=== PATIENT | female | born 1985 ===

== ENCOUNTER 2016-11-10 02:51 | Observation (INO) | payer MEDICAID, SELFPAY ==
[2016-11-10 03:21] VITALS: BMI 30.2
[2016-11-10] MEDS ORDERED: Sodium Chloride 0.9% 1,000 ML IV STA ×3 (03:24→06:30)
[2016-11-10 03:44] LABS: BASO # 0.1 K/uL (0.0-0.2); BASO % 0.8 % (0.0-2.0); EOS # 0.6 K/uL (0.0-0.7); EOS % 6.9 % (0.0-4.0); HEMATOCRIT 37.3 % (34.0-47.0); LYMPH # 1.9 K/uL (1.0-4.3); LYMPH % 20.5 % (20.0-40.0); MEAN CELL VOLUME 82.4 fl (81.0-99.0); MEAN CORPUSCULAR HEMOGLOBIN 27.1 pg (27.0-31.0); MEAN CORPUSCULAR HGB CONC 32.9 g/dL (33.0-37.0); MEAN PLATELET VOLUME 8.1 fl (7.2-11.7); MONO # 1.1 K/uL (0.0-0.8); MONO % 12.5 % (0.0-10.0); NEUT # 5.4 K/uL (1.8-7.0); NEUT % 59.3 % (50.0-75.0); RED CELL DISTRIBUTION WIDTH 16.9 % (11.5-14.5); WHITE BLOOD COUNT 9.1 K/uL (4.8-10.8)
[2016-11-10 03:52] LABS: RBC URINE 2429 /hpf (0-3); URINE BACTERIA RARE (<OCC); URINE BILIRUBIN NEGATIVE (NEGATIVE); URINE BLOOD LARGE (NEGATIVE); URINE COLOR YELLOW (YELLOW); URINE GLUCOSE (UA) NEG (Normal); URINE KETONE NEGATIVE (NEGATIVE); URINE LEUKOCYTE ESTERASE NEG Leu/uL (Negative); URINE PROTEIN 100 mg/dL (NEGATIVE); URINE UROBILINOGEN 0.2-1.0 mg/dL (0.2-1.0); WBC URINE 12 /hpf (0-5)
--- NOTE | 2016-11-10 04:05 | CT ---
EXAM: CT Abdomen and Pelvis Without Intravenous Contrast CLINICAL HISTORY: 31 years old, female; Pain; Abdominal pain; Flank; Left; Additional info: L flank pain, dark urine TECHNIQUE: Axial computed tomography images of the abdomen and pelvis without intravenous contrast. This CT exam was performed using one or more of the following dose reduction techniques: automated exposure control, adjustment of the mA and/or kV according to patient size, and/or use of iterative reconstruction technique. Coronal and sagittal reformatted images were created and reviewed. COMPARISON: No relevant prior studies available. FINDINGS: Lower thorax: No acute findings. ABDOMEN: Liver: Unremarkable. Gallbladder and bile ducts: No calcified stones. No ductal dilation. Pancreas: Unremarkable. No ductal dilation. Spleen: No splenomegaly. Adrenals: No mass. Kidneys and ureters: Few small calculi within LEFT kidney. Mild pelvocaliectasis of LEFT kidney. 0.6 x 0.5 x 0.6 cm calculus within LEFT proximal ureter. Stomach and bowel: No definite mural thickening. No obstruction. Appendix: Normal caliber. No inflammation. PELVIS: Bladder: Apparent mild bladder wall thickening. Incomplete distention, limiting evaluation. No stones. Reproductive: Unremarkable as visualized. ABDOMEN and PELVIS: Intraperitoneal space: No significant fluid collection. No free air. Bones/joints: No acute fracture. Soft tissues: Unremarkable. Vasculature: Unremarkable. No aneurysm. Lymph nodes: No pathologically enlarged lymph nodes. IMPRESSION: 1. LEFT proximal ureteral calculus with mild hydronephrosis. 2. Mild cystitis vs underdistention. Correlate with urinalysis. 3. Incidental/non-acute findings are described above.
--- NOTE | 2016-11-10 04:07 | ED PDOC ---
"HPI: Abdomen Time Seen by Provider: 11/10/16 03:08 Chief Complaint (Nursing): Abdominal Pain Chief Complaint (Provider): abdominal pain, vomiting History Per: Patient, Family, Clinical Science Liaison (Ny gamble RN) Onset/Duration Of Symptoms: Days (3), Intermittent Episodes Current Symptoms Are (Timing): Still Present Location Of Pain/Discomfort: LLQ, Other (L flank) Quality Of Discomfort: Sharp Associated Symptoms: Nausea, Vomiting, Loss Of Appetite, Back Pain. denies: Diarrhea, Urinary Symptoms Exacerbating Factors: None Alleviating Factors: None Last Bowel Movement: Today Additional Complaint(s): 31yo female presents c/o left abdominal pain radiating to left flank for 3 days. Denies fever, diarrhea, she states developed vomiting today. +Active vomiting in ED. Denies vaginal discharge. Currently finishing menses, currently about 6months and +breast feeding. Abnormal Vaginal Bleeding: No Last Menstral Period: now Past Medical History Reviewed: Historical Data, Nursing Documentation, Vital Signs Vital Signs: Last Vital Signs Temp 99.0 F 11/10/16 03:21 Pulse 76 11/10/16 05:33 Resp 16 11/10/16 05:33 BP 107/75 11/10/16 05:33 Pulse Ox 99 11/10/16 06:22 - Medical History PMH: No Chronic Diseases - Surgical History Surgical History: - Family History Family History: States: Unknown Family Hx - Living Arrangements Living Arrangements: With Family - Social History Current smoker - smoking cessation education provided: No - Immunization History Hx Tetanus Toxoid Vaccination: No Hx Influenza Vaccination: No Hx Pneumococcal Vaccination: No - Home Medications Home Medications: Ambulatory Orders Medication Instructions Recorded Multivit/Folic Acid/I 1 tab PO DAILY 05/11/16 [] Ferrous Sulfate [Feosol] 325 mg PO TID #100 tab 05/14/16 Ibuprofen [Motrin Tab] 600 mg PO Q6 PRN #30 tab 05/14/16 Sennosides A and B [Senokot Tab] 17.2 mg PO HS PRN #30 tab 05/14/16 oxyCODONE/Acetaminophen [Percocet 1 tab PO Q4 PRN #30 tab 05/14/16 5/325 mg Tab] - Allergies Allergies/Adverse Reactions: Allergies Allergy/AdvReac Type Severity Reaction Status Date / Time PORK Allergy RASH Verified 11/10/16 03:21 Review of Systems ROS Statement: Except As Marked, All Systems Reviewed And Found Negative Constitutional: Negative for: Fever, Chills Cardiovascular: Negative for: Chest Pain, Palpitations Respiratory: Negative for: Cough, Shortness of Breath Gastrointestinal: Positive for: Nausea, Vomiting, Abdominal Pain Genitourinary Female: Positive for: Vaginal Bleeding. Negative for: Vaginal Discharge Musculoskeletal: Positive for: Back Pain. Negative for: Shoulder Pain, Arm Pain Skin: Negative for: Rash, Lesions, Jaundice Neurological: Negative for: Weakness, Numbness, Headache Psych: Negative for: Depression Physical Exam - Reviewed Nursing Documentation Reviewed: Yes Vital Signs Reviewed: Yes - Physical Exam Appears: Positive for: Non-toxic (vomiting), Uncomfortable Head Exam: Positive for: ATRAUMATIC, NORMAL INSPECTION, NORMOCEPHALIC Skin: Positive for: Normal Color, Warm, DRY Eye Exam: Positive for: EOMI, Normal appearance, PERRL ENT: Positive for: Normal ENT Inspection Neck: Positive for: Normal, Painless ROM Cardiovascular/Chest: Positive for: Regular Rate, Rhythm Respiratory: Positive for: CNT, Normal Breath Sounds Gastrointestinal/Abdominal: Positive for: Bowel Sounds, Soft, Tenderness (L sided). Negative for: Distended, Guarding Back: Positive for: L CVA Tenderness Extremity: Positive for: Normal ROM Neurologic/Psych: Positive for: Alert, Oriented. Negative for: Motor/Sensory Deficits - Laboratory Results Result Diagrams: 11/10/16 03:41 11/10/16 03:41 - ECG O2 Sat by Pulse Oximetry: 99 Medical Decision Making Medical Decision Making: workup initiated for L abdominl/flank pain r/o nephro-ureterolithiasis, pelvic pathology, diverticulitis, or other diagnosis not listed. Fluids, antiemetic and analgesic initiated. CT abd pelv and labwork/UA ordered. labs reviewed WBC normal Chem reveals signs dehydration with elevated BUN and hypokalemia Further pain medicine and IVF ordered CT: ABDOMEN: Liver: Unremarkable. Gallbladder and bile ducts: No calcified stones. No ductal dilation. Pancreas: Unremarkable. No ductal dilation. Spleen: No splenomegaly. Adrenals: No mass. Kidneys and ureters: Few small calculi within LEFT kidney. Mild pelvocaliectasis of LEFT kidney. 0.6 x 0.5 x 0.6 cm calculus within LEFT proximal ureter. Stomach and bowel: No definite mural thickening. No obstruction. Appendix: Normal caliber. No inflammation. PELVIS: Bladder: Apparent mild bladder wall thickening. Incomplete distention, limiting evaluation. No stones. Reproductive: Unremarkable as visualized. ABDOMEN and PELVIS: Intraperitoneal space: No significant fluid collection. No free air. Bones/joints: No acute fracture. Soft tissues: Unremarkable. NIA KELLY | Final Radiology Report CONFIDENTIALITY STATEMENT This report is intended only for use by the referring physician, and only in accordance with law. If you received this in error, call [phone]. Page 2 of 2 Vasculature: Unremarkable. No aneurysm. Lymph nodes: No pathologically enlarged lymph nodes. IMPRESSION: 1. LEFT proximal ureteral calculus with mild hydronephrosis. 2. Mild cystitis vs underdistention. Correlate with urinalysis. 3. Incidental/non-acute findings are described above. Thank you for allowing us to participate in the care of your patient. Dictated and Authenticated by: Monty Cunningham MD 11/10/2016 4:04 AM Eastern Time ([place] & Ej) 545am- pt required further analgesia as remains in painful distress. Flomax also ordered. 620am- multiple doses pain medicine, 2L IVF, flomax and remains in painful distress, pallor. Admit Obs to Dr Floyd, hospitalist for glue maker bone urology eval. Disposition - Clinical Impression Clinical Impression: Ureterolithiasis, Dehydration, Vomiting - Patient ED Disposition Is Patient to be Admitted: Yes Discussed With : Josh Floyd Comment: 615am Doctor Will See Patient In The: ED Counseled Patient/Family Regarding: Studies Performed, Diagnosis, Need For Followup - Disposition Disposition Time: 06:00 Condition: FAIR - Pt Status Changed To: Hospital Disposition Of: Observation - POA Present On Arrival: None"
[2016-11-10 04:12] LABS: ALB/GLOB RATIO 1.3 (1.0-2.1); ALKALINE PHOSPHATASE 88 U/L (38-126); ALT/SGPT 37 U/L (9-52); AST/SGOT 25 U/L (14-36); BILIRUBIN,TOTAL 0.2 mg/dl (0.2-1.3); BLOOD UREA NITROGEN 19 mg/dl (7-17); CALCIUM 9.3 mg/dL (8.4-10.2); CARBON DIOXIDE 24 mmol/L (22-30); CHLORIDE 107 mmol/L (98-107); GFR AFRICAN-AMERICAN > 60; GLUCOSE,RANDOM 116 mg/dL (65-105); LIPASE 62 U/L (23-300); POTASSIUM 3.5 MMOL/L (3.6-5.0); SODIUM 144 mmol/l (132-148); TOTAL PROTEIN 7.7 G/DL (6.3-8.2)
[2016-11-10] MEDS ORDERED: Potassium Chloride 20 mEq ER Tab PO ONE (04:17)
--- NOTE | 2016-11-10 06:43 | CP.PCM.HP ---
History of Present Illness - History of Present Illness History of Present Illness: PCP: None Chief Complaint: LLQ abdomihnjal pain HPI: 31 years old female with hx of Nephrolithiasis with possible Lithotripsy as per her description, Placenta Previa, 3 months Post and breast feeding, comes with 3 days of Sharp, crampy, Left flank pain radiating to the left lower Quadrant of the abdomen and to the left groin vomited here in the ED. No fever, diarrhea, dysuria nor urinary frequency. her menstruation is now ending. PMH: Placenta Previa; Nepohrolithiasis PSH: C- Section; Lithotripsy SH: Never Smoking; No alcohol; No illegal drug use; Live with family FH: No known family hx Allergy: NKDA Pork Medication: Denies Present on Admission - Present on Admission Any Indicators Present on Admission: No History of DVT/PE: No History of Uncontrolled Diabetes: No Urinary Catheter: No Decubitus Ulcer Present: No Review of Systems - Constitutional Constitutional: absent: Anorexia, Fatigue, Fever, Headache, Lethargy - EENT Eyes: absent: Diplopia, Floaters, Photophobia, Requires Corrective Lenses Ears: absent: Decreased Hearing, Ear Discharge, Ear Pain, Tinnitus Nose/Mouth/Throat: Nasal Congestion. absent: Epistaxis, Nasal Discharge, Sinus Pain, Sinus Pressure - Cardiovascular Cardiovascular: absent: Chest Pain, Dyspnea, Edema - Respiratory Respiratory: Cough. absent: Wheezing, Stridor - Gastrointestinal Gastrointestinal: Abdominal Pain, Constipation, Vomiting. absent: Melena, Nausea Additional comments: LLQ abdominal pain radiating to the left flank and left groin - Genitourinary Genitourinary: absent: Dysuria, Flank Pain, Hematuria, Urinary Frequency - Musculoskeletal Musculoskeletal: absent: Arthralgias, Muscle Weakness, Neck Pain - Integumentary Integumentary: absent: Pruritus, Rash, Skin Ulcer, Sores, Striae, Swelling - Neurological Neurological: absent: Confusion, Focal Weakness, Headaches, Paresthesias - Psychiatric Psychiatric: absent: Anxiety, Depression, Panic Attacks - Endocrine Endocrine: absent: Palpitations, Polydipsia - Hematologic/Lymphatic Hematologic: absent: Easy Bleeding, Easy Bruising Past Patient History - Past Social History Smoking Status: Never Smoked Chewing Tobacco Use: No Cigar Use: No Alcohol: None Drugs: Denies Home Situation {Lives}: With Family - CARDIAC Hx Cardiac Disorders: No - PULMONARY Hx Respiratory Disorders: No - NEUROLOGICAL Hx Neurological Disorder: No - HEENT Hx HEENT Problems: No - RENAL Hx Chronic Kidney Disease: Yes Hx Kidney Stones: Yes - ENDOCRINE/METABOLIC Hx Endocrine Disorders: No - HEMATOLOGICAL/ONCOLOGICAL Hx Blood Disorders: No - MUSCULOSKELETAL/RHEUMATOLOGICAL Hx Musculoskeletal Disorders: No - GASTROINTESTINAL Hx Gastrointestinal Disorders: No - GENITOURINARY/GYNECOLOGICAL Hx Genitourinary Disorders: No - PSYCHIATRIC Hx Psychophysiologic Disorder: No Hx Substance Use: No - SURGICAL HISTORY Hx Surgeries: Yes Hx Section: Yes Other/Comment: Lithotripsy - ANESTHESIA Hx Anesthesia: Yes Hx Anesthesia Reactions: No Meds Allergies/Adverse Reactions: Allergies Allergy/AdvReac Type Severity Reaction Status Date / Time PORK Allergy RASH Verified 11/10/16 03:21 Physical Exam - Constitutional Appears: No Acute Distress - Head Exam Head Exam: ATRAUMATIC, NORMAL INSPECTION, NORMOCEPHALIC - Eye Exam Eye Exam: EOMI, Normal appearance Pupil Exam: NORMAL ACCOMODATION, PERRL - ENT Exam ENT Exam: Mucous Membranes Moist, Normal Exam, Normal External Ear Exam, Normal Oropharynx - Neck Exam Neck exam: Positive for: Full Rom, Normal Inspection. Negative for: Lymphadenopathy, Tenderness - Respiratory Exam Respiratory Exam: Clear to Auscultation Bilateral. absent: Rales, Rhonchi, Wheezes - Cardiovascular Exam Cardiovascular Exam: REGULAR RHYTHM, RRR, +S1, +S2. absent: Gallop, JVD - GI/Abdominal Exam Additional comments: Flat, Soft, Tender at the LLQ, no guarding nor rebound tenderness. - Rectal Exam Rectal Exam: Deferred - Extremities Exam Extremities exam: Positive for: full ROM, normal inspection. Negative for: pedal edema, tenderness - Back Exam Back exam: NORMAL INSPECTION. absent: CVA tenderness (L), CVA tenderness (R) - Neurological Exam Neurological exam: Alert, CN II-XII Intact, Oriented x3, Reflexes Normal - Psychiatric Exam Psychiatric exam: Normal Affect, Normal Mood - Skin Skin Exam: Dry, Intact, Normal Color, Warm Results - Vital Signs Recent Vital Signs: Last Vital Signs Temp 99.0 F 11/10/16 03:21 Pulse 76 11/10/16 05:33 Resp 16 11/10/16 05:33 BP 107/75 11/10/16 05:33 Pulse Ox 99 11/10/16 06:25 - Labs Result Diagrams: 11/10/16 03:41 11/10/16 03:41 Labs: Laboratory Results - last 24 hr 11/10/16 11/10/16 11/10/16 03:41 03:41 03:41 WBC 9.1 RBC 4.52 Hgb 12.3 Hct 37.3 MCV 82.4 D MCH 27.1 MCHC 32.9 L RDW 16.9 H Plt Count 268 MPV 8.1 Neut % (Auto) 59.3 Lymph % (Auto) 20.5 [place] % (Auto) 12.5 H Eos % (Auto) 6.9 H Baso % (Auto) 0.8 Neut # 5.4 Lymph # 1.9 [place] # 1.1 H Eos # 0.6 Baso # 0.1 Sodium 144 Potassium 3.5 L Chloride 107 Carbon Dioxide 24 Anion Gap 17 BUN 19 H Creatinine 0.6 L Est GFR ( Amer) > 60 Est GFR (Non-Af Amer) > 60 Random Glucose 116 H Calcium 9.3 Total Bilirubin 0.2 AST 25 ALT 37 Alkaline Phosphatase 88 Total Protein 7.7 Albumin 4.4 Globulin 3.3 Albumin/Globulin Ratio 1.3 Lipase 62 Urine Color Yellow Urine Clarity Cloudy Urine pH 5.0 Ur Specific [place] 1.035 H Urine Protein 100 Urine Glucose (UA) Neg Urine Ketones Negative Urine Blood Large Urine Nitrate Negative Urine Bilirubin Negative Urine Urobilinogen 0.2-1.0 Ur Leukocyte Esterase Neg Urine RBC (Auto) 2429 H Urine Microscopic WBC 12 H Ur Squamous Epith Cells 5 Urine Bacteria Rare - Imaging and Cardiology CT scan - abdomen Status: Report reviewed by me Additional comment: ABDOMEN: Liver: Unremarkable. Gallbladder and bile ducts: No calcified stones. No ductal dilation. Pancreas: Unremarkable. No ductal dilation. Spleen: No splenomegaly. Adrenals: No mass. Kidneys and ureters: Few small calculi within LEFT kidney. Mild pelvocaliectasis of LEFT kidney. 0.6 x 0.5 x 0.6 cm calculus within LEFT proximal ureter. Stomach and bowel: No definite mural thickening. No obstruction. Appendix: Normal caliber. No inflammation. PELVIS: Bladder: Apparent mild bladder wall thickening. Incomplete distention, limiting evaluation. No stones. Reproductive: Unremarkable as visualized. ABDOMEN and PELVIS: Intraperitoneal space: No significant fluid collection. No free air. Bones/joints: No acute fracture. Soft tissues: Unremarkable. Vasculature: Unremarkable. No aneurysm. Lymph nodes: No pathologically enlarged lymph nodes. IMPRESSION: 1. LEFT proximal ureteral calculus with mild hydronephrosis. 2. Mild cystitis vs underdistention. Correlate with urinalysis. 3. Incidental/non-acute findings are described above. Assessment & Plan - Assessment and Plan (Free Text) Assessment: #. Left nephrolithiasis with Hydronephrosis #. Abdominal Pain #. Dehydration #. Hypokalemia Plan: 31 years old female with hx of Nephrolithiasis with possible Lithotripsy as per her description, Placenta Previa, 3 months Post and breast feeding, comes with 3 days of Sharp, crampy, Left flank pain radiating to the left lower Quadrant of the abdomen and to the left groin vomited here in the ED. #. Left nephrolithiasis with Hydronephrosis - Consult Dr Flores Urology - IV fluids NS at 200mls/hr - Strain all urine for stone if passed #. Abdominal Pain due to renal colic - pain management with Morphine - Zofran for vomiting #. No symptoms for Cystitis , Pelvic pain, dysuria, urine frequency, fever, WBC elevation nor positive Urinalysis - Will hold Antibiotics at present #. Dehydration - IV Fluids - Follow renal labs #. Hypokalemia - Repleted - Follow Electrolytes #. DVT prophylaxis with SCD #.Code Status: Full - Date & Time Date: 11/10/16 Time: 06:42
--- NOTE | 2016-11-10 09:06 | CP.PCM.CON ---
History of Present Illness - History of Present Illness History of Present Illness: called to see this 31 yr female for acute left renal colic. a ct was done showing a left UPJ occlusive stone and several smaller calculi within the left renal area proper. I will schedule cysto with JJ stent placement for Monday 12 pm. Past Patient History - Past Social History Smoking Status: Never Smoked Chewing Tobacco Use: No Cigar Use: No Alcohol: None Drugs: Denies Home Situation {Lives}: With Family - CARDIAC Hx Cardiac Disorders: No - PULMONARY Hx Respiratory Disorders: No - NEUROLOGICAL Hx Neurological Disorder: No - HEENT Hx HEENT Problems: No - RENAL Hx Chronic Kidney Disease: Yes Hx Kidney Stones: Yes - ENDOCRINE/METABOLIC Hx Endocrine Disorders: No - HEMATOLOGICAL/ONCOLOGICAL Hx Blood Disorders: No - MUSCULOSKELETAL/RHEUMATOLOGICAL Hx Musculoskeletal Disorders: No - GASTROINTESTINAL Hx Gastrointestinal Disorders: No - GENITOURINARY/GYNECOLOGICAL Hx Genitourinary Disorders: No - PSYCHIATRIC Hx Psychophysiologic Disorder: No Hx Substance Use: No - SURGICAL HISTORY Hx Surgeries: Yes Hx Section: Yes Other/Comment: Lithotripsy - ANESTHESIA Hx Anesthesia: Yes Hx Anesthesia Reactions: No Meds Allergies/Adverse Reactions: Allergies Allergy/AdvReac Type Severity Reaction Status Date / Time PORK Allergy RASH Verified 11/10/16 03:21 - Medications Medications: Current Medications Sodium Chloride (Sodium Chloride 0.9%) 1,000 mls @ 200 mls/hr IV .Q5H [facility] Stop: 11/11/16 07:28 Potassium Chloride (Potassium Chloride 10 Meq/100 Ml) 100 mls @ 100 mls/hr IVPB Q1 [facility] Stop: 11/10/16 09:59 Morphine Sulfate (Morphine) 2 mg IVP Q4 PRN PRN Reason: Pain, severe (8-10) Morphine Sulfate (Morphine) 1 mg IVP Q4 PRN PRN Reason: Pain, moderate (4-7) Ondansetron HCl (Zofran Inj) 4 mg IVP Q4 PRN PRN Reason: Nausea/Vomiting Tamsulosin HCl (Flomax) 0.4 mg PO DAILY [facility] Results - Vital Signs Recent Vital Signs: Last Vital Signs Temp 99.0 F 11/10/16 03:21 Pulse 86 11/10/16 06:51 Resp 16 11/10/16 06:51 BP 117/72 11/10/16 06:51 Pulse Ox 100 11/10/16 06:51 - Labs Result Diagrams: 11/10/16 03:41 11/10/16 03:41
[2016-11-10] MEDS ORDERED: HYDROmorphone 0.5 mg/0.5 ml ISec IVP PRN (13:46)
[2016-11-10] MEDS: Potassium CL 10mEq/100ml 100 ML IVPB SCH ×2 (14:33→16:18)
[2016-11-10] MEDS: Sodium Chloride 0.9% 1,000 ML IV SCH ×2 (16:17→22:48)
--- NOTE | 2016-11-10 23:37 | CARD ---
APPROVED REPORT EKG Measurement Heart [id number] <Conclusion> Normal sinus rhythm Normal ECG
[2016-11-11] MEDS: Sodium Chloride 0.9% 1,000 ML IV SCH ×2 (03:33→08:42)
[2016-11-11 06:39] LABS: BASO % 0.6 % (0.0-2.0); EOS # 0.2 K/uL (0.0-0.7); EOS % 2.2 % (0.0-4.0); HEMATOCRIT 33.5 % (34.0-47.0); LYMPH # 2.1 K/uL (1.0-4.3); MEAN CELL VOLUME 84.1 fl (81.0-99.0); MEAN CORPUSCULAR HEMOGLOBIN 27.1 pg (27.0-31.0); MEAN CORPUSCULAR HGB CONC 32.2 g/dL (33.0-37.0); MEAN PLATELET VOLUME 8.4 fl (7.2-11.7); MONO # 1.2 K/uL (0.0-0.8); MONO % 17.1 % (0.0-10.0); NEUT # 3.4 K/uL (1.8-7.0); NEUT % 49.1 % (50.0-75.0); NRBC % 0.1 % (0.0-0.0); RED CELL DISTRIBUTION WIDTH 17.1 % (11.5-14.5); WHITE BLOOD COUNT 6.9 K/uL (4.8-10.8)
[2016-11-11 06:51] LABS: BLOOD UREA NITROGEN 7 mg/dl (7-17); CALCIUM 7.9 mg/dL (8.4-10.2); CARBON DIOXIDE 23 mmol/L (22-30); CHLORIDE 112 mmol/L (98-107); GFR AFRICAN-AMERICAN > 60; GLUCOSE,RANDOM 94 mg/dL (65-105); POTASSIUM 3.5 MMOL/L (3.6-5.0); SODIUM 142 mmol/l (132-148)
[2016-11-11 07:01] LABS: PARTIAL THROMBOPLASTIN TIME 27.5 Seconds (25.6-37.1)
[2016-11-11] MEDS ORDERED: Potassium Chloride 10 MEQ in Dextrose 5%/0.9% NS 1,000 ML IV SCH (08:45)
[2016-11-11] MEDS ORDERED: Sodium Chloride 0.9% 1,000 ML IV ONE (12:15)
[2016-11-11] MEDS ORDERED: cefTRIAXone (Rocephin) 1 gm Inj IVPB ONE (12:22)
[2016-11-11] MEDS ORDERED: HYDROmorphone 0.5 mg/0.5 ml ISec IVP PRN (12:42)
[2016-11-11 14:11] VITALS: RESP 20
--- NOTE | 2016-11-11 14:31 | OP ---
PROCEDURE DATE: 11/11/2016 PREOPERATIVE DIAGNOSES: Acute left renal colic, secondary to an obstructing stone. POSTOPERATIVE DIAGNOSES: Acute left renal colic, secondary to an obstructing stone. PROCEDURE PERFORMED: Cystoscopy with a Double-J stent placement. Under general anesthesia, the patient was placed on the operating table in dorsal lithotomy position. The area of the groin was draped and prepped in a sterile manner. Using a 22 cystoscope, I entered to the bladder atraumatically, identified the left ureteral orifice over a floppy tip guidewire, deo ch I advanced to the level of the renal pelvis and I could see that under fluoroscopy, the stone was clearly visible. At this time, I left a 6-[place] multilength double-J stent. It was in good positio n. The string was attached. I taped it to the inner thigh of her left leg. The patient then was ta eleni from the operating room in good condition. Kaur Flores MD cc: 48 TT: 11/11/2016 14:30:41 en
[2016-11-11 15:35] VITALS: BP 113/70
[2016-11-11] MEDS ORDERED: Oxycodone/Acetaminophen 5/325 mg Tab PO PRN (16:55)
--- NOTE | 2016-11-11 18:23 | CP.PCM.DIS ---
Provider - Provider Date of Admission: 11/10/16 06:16 Attending physician: Josh Floyd Consults: Urology : Dr Flores Time Spent in preparation of Discharge (in minutes): 30 Diagnosis - Discharge Diagnosis (1) Renal colic Status: Acute (2) Ureterolithiasis Status: Acute (3) Hydronephrosis Status: Acute (4) UTI (urinary tract infection) Status: Acute Hospital Course - Lab Results Lab Results: Most Recent Lab Values WBC 6.9 K/uL (4.8-10.8) 11/11/16 05:35 RBC 3.98 Mil/uL (3.80-5.20) 11/11/16 05:35 Hgb 10.8 g/dL (12.0-16.0) L 11/11/16 05:35 Hct 33.5 % (34.0-47.0) L 11/11/16 05:35 MCV 84.1 fl (81.0-99.0) 11/11/16 05:35 MCH 27.1 pg (27.0-31.0) 11/11/16 05:35 MCHC 32.2 g/dL (33.0-37.0) L 11/11/16 05:35 RDW 17.1 % (11.5-14.5) H 11/11/16 05:35 Plt Count 207 K/uL (130-400) 11/11/16 05:35 MPV 8.4 fl (7.2-11.7) 11/11/16 05:35 Neut % (Auto) 49.1 % (50.0-75.0) L 11/11/16 05:35 Lymph % (Auto) 31.0 % (20.0-40.0) 11/11/16 05:35 Person % (Auto) 17.1 % (0.0-10.0) H 11/11/16 05:35 Eos % (Auto) 2.2 % (0.0-4.0) 11/11/16 05:35 Baso % (Auto) 0.6 % (0.0-2.0) 11/11/16 05:35 Neut # 3.4 K/uL (1.8-7.0) 11/11/16 05:35 Lymph # 2.1 K/uL (1.0-4.3) 11/11/16 05:35 Person # 1.2 K/uL (0.0-0.8) H 11/11/16 05:35 Eos # 0.2 K/uL (0.0-0.7) 11/11/16 05:35 Baso # 0.0 K/uL (0.0-0.2) 11/11/16 05:35 PT 12.5 Seconds (9.8-13.1) 11/11/16 05:35 INR 1.1 (0.9-1.2) 11/11/16 05:35 APTT 27.5 Seconds (25.6-37.1) 11/11/16 05:35 Sodium 142 mmol/l (132-148) 11/11/16 05:35 Potassium 3.5 MMOL/L (3.6-5.0) L 11/11/16 05:35 Chloride 112 mmol/L (98-107) H 11/11/16 05:35 Carbon Dioxide 23 mmol/L (22-30) 11/11/16 05:35 Anion Gap 11 (10-20) 11/11/16 05:35 BUN 7 mg/dl (7-17) 11/11/16 05:35 Creatinine 0.6 mg/dL (0.7-1.2) L 11/11/16 05:35 Est GFR ( Amer) > 60 11/11/16 05:35 Est GFR (Non-Af Amer) > 60 11/11/16 05:35 Random Glucose 94 mg/dL (65-105) 11/11/16 05:35 Calcium 7.9 mg/dL (8.4-10.2) L 11/11/16 05:35 Total Bilirubin 0.2 mg/dl (0.2-1.3) 11/10/16 03:41 AST 25 U/L (14-36) 11/10/16 03:41 ALT 37 U/L (9-52) 11/10/16 03:41 Alkaline Phosphatase 88 U/L (38-126) 11/10/16 03:41 Total Protein 7.7 G/DL (6.3-8.2) 11/10/16 03:41 Albumin 4.4 g/dL (3.5-5.0) 11/10/16 03:41 Globulin 3.3 gm/dL (2.2-3.9) 11/10/16 03:41 Albumin/Globulin Ratio 1.3 (1.0-2.1) 11/10/16 03:41 Lipase 62 U/L (23-300) 11/10/16 03:41 Urine Color Yellow (YELLOW) 11/10/16 03:41 Urine Clarity Cloudy (Clear) 11/10/16 03:41 Urine pH 5.0 (5.0-8.0) 11/10/16 03:41 Ur Specific [place] 1.035 (1.003-1.030) H 11/10/16 03:41 Urine Protein 100 mg/dL (NEGATIVE) 11/10/16 03:41 Urine Glucose (UA) Neg mg/dL (Normal) 11/10/16 03:41 Urine Ketones Negative mg/dL (NEGATIVE) 11/10/16 03:41 Urine Blood Large (NEGATIVE) 11/10/16 03:41 Urine Nitrate Negative (NEGATIVE) 11/10/16 03:41 Urine Bilirubin Negative (NEGATIVE) 11/10/16 03:41 Urine Urobilinogen 0.2-1.0 mg/dL (0.2-1.0) 11/10/16 03:41 Ur Leukocyte Esterase Neg Betty/uL (Negative) 11/10/16 03:41 Urine RBC (Auto) 2429 /hpf (0-3) H 11/10/16 03:41 Urine Microscopic WBC 12 /hpf (0-5) H 11/10/16 03:41 Ur Squamous Epith Cells 5 /hpf (0-5) 11/10/16 03:41 Urine Bacteria Rare (<OCC) 11/10/16 03:41 - Hospital Course Hospital Course: 31 years old female with hx of Nephrolithiasis w/ Lithotripsy ( yrs ago) Placenta Previa, 3 months Post and breast feeding, comes with 3 days of sharp, crampy, Left flank pain radiating to the left lower Quadrant of the abdomen and to the left groin vomited here in the ED. No fever, diarrhea, dysuria nor urinary frequency. CT of abd/Pelvis: 1. LEFT proximal ureteral calculus with mild hydronephrosis. 2. Mild cystitis vs underdistention. Correlate with urinalysis. Pt was observed in med Surg , started on IVF hydration, Flomax and IV Opiates. She was also started on IV ceftriaxone. Urology was consulted- she then underwent Cystoscopy with J stent placement. Cleared by Dr Flores for d/c. Pt to ff up with dr Flores next wk for removal of stent. Discharge Exam - Head Exam Head Exam: ATRAUMATIC, NORMAL INSPECTION, NORMOCEPHALIC - Eye Exam Eye Exam: EOMI, Normal appearance, PERRL Pupil Exam: NORMAL ACCOMODATION - ENT Exam ENT Exam: Mucous Membranes Moist, Normal External Ear Exam - Neck Exam Neck exam: Full Rom - Respiratory Exam Respiratory Exam: NORMAL BREATHING PATTERN. absent: Respiratory Distress - Cardiovascular Exam Cardiovascular Exam: REGULAR RHYTHM, +S1, +S2 - GI/Abdominal Exam GI & Abdominal Exam: Normal Bowel Sounds, Soft. absent: Tenderness - Extremities Exam Extremities exam: full ROM, normal capillary refill, normal inspection, pedal pulses present - Back Exam Back exam: CVA tenderness (L) (minimal ), FULL ROM. absent: CVA tenderness (R) , paraspinal tenderness, vertebral tenderness - Neurological Exam Neurological exam: Alert, CN II-XII Intact, Normal Gait, Oriented x3, Reflexes Normal - Psychiatric Exam Psychiatric exam: Normal Affect, Normal Mood - Skin Skin Exam: Dry, Normal Color, Warm Discharge Plan - Follow Up Plan Condition: GOOD Disposition: HOME/ ROUTINE Instructions: Ureteral Stent Placement (DC), Ureteral Stones (DC) Additional Instructions: appt with dr Flores next wk Do not pull string attached to stent- to be d/c by dr Flores appt Clinic in 1 wk Referrals: Kaur Flores MD [Medical Doctor] -
[2016-11-11 22:50] VITALS: PULSE 75; TEMP 98; O2SAT 99
--- NOTE | 2016-11-12 10:05 | RAD ---
PROCEDURE: Intraoperative Fluoroscopy. HISTORY: LEFT URETERAL STENT INSERTION FINDINGS: Fluoroscopic assistance was provided Please refer to the operative report for additional details
== END 2016-11-11 20:45 | disposition home or self-care (01) ==
LOC: H.ER 02:51 → INTOOBSV 06:16 → H.ERHOLD 06:16 → H.PEDS 09:31
PROVIDERS: ADMIT Internal Medicine; ATTEND Internal Medicine
DX: N13.6 Pyonephrosis (principal); E86.0 Dehydration; E87.6 Hypokalemia; Z91.018 Allergy to other foods

== ENCOUNTER 2017-12-29 18:50 | Emergency (ER) | payer OTHER, SELFPAY ==
[2017-12-29 18:50] VITALS: BMI 30.2
[2017-12-29 19:22] VITALS: RESP 18
[2017-12-29] MEDS ORDERED: Sodium Chloride 0.9% 1,000 ML IV STA ×2 (20:04→21:55)
[2017-12-29 21:04] LABS: BASO % 0.4 % (0.0-2.0); EOS % 0.1 % (0.0-4.0); HEMOGLOBIN 13.5 g/dL (12.0-16.0); LYMPH # 0.6 K/uL (1.0-4.3); LYMPH % 9.3 % (20.0-40.0); MEAN CORPUSCULAR HEMOGLOBIN 29.1 pg (27.0-31.0); MEAN CORPUSCULAR HGB CONC 33.5 g/dL (33.0-37.0); MEAN PLATELET VOLUME 8.6 fl (7.2-11.7); MONO # 0.6 K/uL (0.0-0.8); MONO % 9.1 % (0.0-10.0); NEUT # 5.5 K/uL (1.8-7.0); NEUT % 81.1 % (50.0-75.0); NRBC % 0.1 % (0.0-0.0); PLATELET COUNT 203 K/uL (130-400); RBC 4.63 Mil/uL (3.80-5.20); RED CELL DISTRIBUTION WIDTH 13.6 % (11.5-14.5); WHITE BLOOD COUNT 6.7 K/uL (4.8-10.8)
[2017-12-29 21:12] LABS: ALB/GLOB RATIO 1.2 (1.0-2.1); ALBUMIN 4.3 g/dL (3.5-5.0); ALT/SGPT 23 U/L (9-52); AST/SGOT 25 U/L (14-36); BLOOD UREA NITROGEN 10 mg/dl (7-17); CALCIUM 8.7 mg/dL (8.4-10.2); GFR AFRICAN-AMERICAN > 60; GFR NON-AFRICAN AMERICAN > 60
--- NOTE | 2017-12-29 21:27 | ED PDOC ---
HPI: General Adult Time Seen by Provider: 12/29/17 19:40 Chief Complaint (Nursing): Fever Chief Complaint (Provider): Fever History Per: Patient History/Exam Limitations: no limitations Onset/Duration Of Symptoms: Days (x1) Additional Complaint(s): Mary Mayer is a 32 y/o female with no significant past medical history who presents to the ED complaining of fever, chills, and diarrhea, onset x1 day. Patient reports she developed acute onset fever with chills earlier today and had 1 episode of loose watery diarrhea. She also reports an associated abdominal cramping and nausea but no vomiting. She states she didn't take anything to manage symptoms. She also complains of lower back pain. Past Medical History Reviewed: Historical Data, Nursing Documentation, Vital Signs Vital Signs: Last Vital Signs Temp 99.1 F 12/29/17 21:53 Pulse 108 H 12/29/17 21:53 Resp 18 12/29/17 21:53 BP 100/66 12/29/17 19:17 Pulse Ox 100 12/29/17 21:53 - Medical History PMH: Kidney Stones, Chronic Kidney Disease Denies: HIV - Surgical History Surgical History: - Family History Family History: States: Unknown Family Hx - Immunization History Hx Tetanus Toxoid Vaccination: No Hx Influenza Vaccination: No Hx Pneumococcal Vaccination: No - Home Medications Home Medications: Ambulatory Orders Medication Instructions Recorded Multivit/Folic Acid/I 1 tab PO DAILY 05/11/16 [] Ferrous Sulfate [Feosol] 325 mg PO TID #100 tab 05/14/16 Sennosides A and B [Senokot Tab] 17.2 mg PO HS PRN #30 tab 05/14/16 Ciprofloxacin HCl [Cipro] 500 mg PO BID #10 tablet 11/11/16 Tramadol HCl/Acetaminophen 1 each PO Q6 PRN #15 tablet 11/11/16 [Ultracet Tablet] Ciprofloxacin [Cipro] 500 mg PO Q12 #14 tab 12/29/17 Dicyclomine [Bentyl] 20 mg PO Q12 PRN #20 tab 12/29/17 Ondansetron ODT [Zofran ODT] 4 mg PO Q6 PRN #8 odt 12/29/17 - Allergies Allergies/Adverse Reactions: Allergies Allergy/AdvReac Type Severity Reaction Status Date / Time PORK Allergy RASH Verified 11/10/16 03:21 Review of Systems ROS Statement: Except As Marked, All Systems Reviewed And Found Negative Constitutional: Positive for: Fever, Chills Gastrointestinal: Positive for: Nausea, Abdominal Pain (cramps), Diarrhea. Negative for: Vomiting Musculoskeletal: Positive for: Back Pain Physical Exam - Reviewed Nursing Documentation Reviewed: Yes Vital Signs Reviewed: Yes - Physical Exam Appears: Positive for: No Acute Distress (febrile) Head Exam: Positive for: ATRAUMATIC, NORMOCEPHALIC Skin: Positive for: Normal Color, Warm, Dry Eye Exam: Positive for: EOMI, Normal appearance, PERRL Neck: Positive for: Normal, Painless ROM, Supple Cardiovascular/Chest: Positive for: Tachycardia Respiratory: Positive for: Normal Breath Sounds. Negative for: Respiratory Distress Gastrointestinal/Abdominal: Positive for: Tenderness (suprapubic) Back: Positive for: Normal Inspection. Negative for: L CVA Tenderness, R CVA Tenderness Extremity: Positive for: Normal ROM. Negative for: Pedal Edema, Deformity Neurologic/Psych: Positive for: Alert, Oriented. Negative for: Motor/Sensory Deficits - Laboratory Results Result Diagrams: 12/29/17 20:51 12/29/17 20:51 - ECG O2 Sat by Pulse Oximetry: 98 (RA) Pulse Ox Interpretation: Normal Medical Decision Making Medical Decision Making: Time: 20:04 Impression: 32 y/o female with fever, chills, and diarrhea Initial Plan: --CMP --Lactic acid --Urine dipstick --CBC w/ differential --Sodium chloride IV 1000 mls/hr --Toradol 15 mg IVP --Urinalysis 11:35 -Labs reviewed and showed no clinical significant abnormalities w/ exception of urine which was indicative for possible UTI. Patient reports improvement in symptoms and is medically stable for discharge, diagnosis UTI and gastroenteritis. Patient will be discharged home with Rx for Cipro and Bentyl. Scribe Attestation: Documented by Joshua Limon, acting as a scribe for Mio Mcdonald MD. Provider Scribe Attestation: All medical record entries made by the Scribe were at my direction and personally dictated by me. I have reviewed the chart and agree that the record accurately reflects my personal performance of the history, physical exam, medical decision making, and the department course for this patient. I have also personally directed, reviewed, and agree with the discharge instructions and disposition. Disposition - Clinical Impression Clinical Impression: Gastroenteritis, UTI (urinary tract infection) - Disposition Disposition: Routine/Home Disposition Time: 23:35 Condition: STABLE Prescriptions: Ciprofloxacin [Cipro] 500 mg PO Q12 #14 tab Dicyclomine [Bentyl] 20 mg PO Q12 PRN #20 tab PRN Reason: diarrhea/abdominal pain Ondansetron ODT [Zofran ODT] 4 mg PO Q6 PRN #8 odt PRN Reason: Nausea/Vomiting Instructions: Urinary Tract Infections in Adults, Gastroenteritis (ED) Forms: [facility] (Estonian) Print Language: CUBAN
[2017-12-29 22:05] LABS: SQUAMOUS EPITHIAL 7 /hpf (0-5); URINE BACTERIA RARE (<OCC); URINE BILIRUBIN NEGATIVE (NEGATIVE); URINE BLOOD NEGATIVE (NEGATIVE); URINE CLARITY CLOUDY (Clear); URINE COLOR YELLOW (YELLOW); URINE GLUCOSE (UA) NEG (Normal); URINE LEUKOCYTE ESTERASE LARGE Leu/uL (Negative); URINE PROTEIN NEGATIVE (NEGATIVE); URINE UROBILINOGEN 0.2-1.0 mg/dL (0.2-1.0)
[2017-12-29 22:32] LABS: BANDS 3 % (0-2); HYPOCHROMIC SLIGHT; LYMPHOCYTE 12 % (20-50); MICROCYTOSIS SLIGHT; MONOCYTE 7 % (0-10); NEUTROPHIL 78 % (42-75); PLATELET ESTIMATE NORMAL (NORMAL); TOTAL CELLS COUNTED 100
[2017-12-29] MEDS ORDERED: cefTRIAXone (Rocephin) 1 gm Inj ONE (22:51)
[2017-12-30 00:19] VITALS: BP 112/72; PULSE 104; TEMP 99.4; O2SAT 100
== END 2017-12-30 00:15 | disposition home or self-care (01) ==
LOC: H.ER 18:50
DX: K52.9 Noninfective gastroenteritis and colitis, unspecified (principal); N39.0 Urinary tract infection, site not specified
CPT/HCPCS: 80053; 81003; 81025; 83605; 85025; 87040; 96374; 99284; J0696; J1885; J7030